=== PATIENT | female | born 1985 | race Caucasian/White ===

== ENCOUNTER 2018-06-18 20:00 | Emergency (ER) | payer MEDICAID ==
[~2018-06-18] VITALS: Ht 162.6 cm; Wt 88.9 kg
[2018-06-18 20:00] VITALS: BP 138/68
--- NOTE | 2018-06-18 20:00 | NUR ---
PT BIBA WITH C/O PAIN IN BACK, PELVIC REGION, SOB X 1 DAY. PT STATED SHE HAD A TUBAL REVERSAL X 1 DAY, WAS IN/OUT SURGERY. PT STAYED IN A HOTEL DUE TO LIVING IN [place]. PT WAS DRIVING HOME TODAY WHEN THE PAIN BECAME UNBEARABLE. PT IS A LEVEL 6/10 FOR PAIN AT THIS TIME. PT SURGERY SITE IS CLEAN AND INTACT. NO SWELLING OR REDNNES, DISCHARGE AT THIS TIME. PT HAS NO PREVIOUS MEDICAL HX. PT HAS AN ALLERGY TO LATEX AND POSSIBLE DM. PT STATED SHE HAS NOT BEEN ABLE TO URINATE SINCE HER SURGERY. PT IS A/O X 4. LUNG SOUNDS CLEAR. DENIES N/V/D; SKIN IS PINK/WARM/DRY; VSS; PATIENT POSITIONED FOR COMFORT; HOB ELEVATED; BEDRAILS UP X2; BED DOWN. ER MD MADE AWARE OF PT STATUS.
--- NOTE | 2018-06-18 20:00 | NUR ---
PT YUNIOR ALS. TAKEN TO BED 5
--- NOTE | 2018-06-18 20:24 | NUR ---
Dr. Foster evaluating patient at bedside.
[2018-06-18] MEDS ORDERED: NACL 0.9% 1,000 ML IV ONE (20:35)
[2018-06-18 21:01] LABS: BASOPHILS % (AUTO) 0.4 % (0.0-2.0); EOSINOPHILS # (AUTO) 0.1 K/uL (0-0.4); EOSINOPHILS % (AUTO) 0.7 % (0.0-4.0); HEMOGLOBIN 12.2 g/dL (12.0-16.0); LYMPHOCYTES # (AUTO) 3.3 K/uL (2.5-16.5); LYMPHOCYTES % (AUTO) 24.9 % (20.5-51.1); MEAN CORPUSCULAR HEMOGLOBIN 29 pg (27-31); MEAN CORPUSCULAR HGB CONC 33 g/dL (33-37); MONOCYTES # (AUTO) 0.9 K/uL (0.8-1.0); MONOCYTES % (AUTO) 7.1 % (1.7-9.3); NEUTROPHILS # (AUTO) 8.9 K/uL (1.8-7.7); NEUTROPHILS % (AUTO) 66.9 % (42.2-75.2); PLATELET COUNT (AUTO) 199 K/uL (140-450); RED BLOOD CELL COUNT(AUTO) 4.21 MIL/uL (4.20-5.40); RED CELL DISTRIBUTION WIDTH 14.3 % (11.6-13.7); WHITE BLOOD COUNT (AUTO) 13.3 K/uL (4.8-10.8)
[2018-06-18] MEDS ORDERED: ENOXAPARIN 100 MG/ML SYR SUBQ ONE (21:05)
[2018-06-18 21:14] LABS: PROTHROMBIN TIME 10.3 secs (10.8-13.4)
--- NOTE | 2018-06-18 21:16 | NUR ---
X-Ray at bedside.
[2018-06-18 21:22] LABS: CARBON DIOXIDE 25.6 mmol/L (21-32); POTASSIUM 3.6 mmol/L (3.5-5.1)
[2018-06-18 21:23] LABS: ALBUMIN 3.2 g/dL (3.4-5.0); CREATININE 0.6 mg/dL (0.6-1.3); TOTAL BILIRUBIN 0.1 mg/dL (0.0-1.0)
--- NOTE | 2018-06-18 21:35 | NUR ---
PT STATED THAT SHE HAD THE REVERSAL SURGERY TO HELP WITH HER POSSIBLE DM. SHE STATED SHE GOOGLED IT AND DID HER RESEARCH. PT STATED SHE HAS NOT SEEN A PHYSICIAN FOR A LONG TIME AND HAS NOT TREATED HER POSSIBLE DM WITH EXCERCISE AND DIET. MD MADE AWARE OF STATUS. VITALS STABLE
--- NOTE | 2018-06-18 22:10 | NUR ---
pt ambulated to the restroom. tolerated well
--- NOTE | 2018-06-18 22:26 | NUR ---
PT TAKEN TO CT
--- NOTE | 2018-06-18 22:41 | NUR ---
PT RETURN FROM CT
--- NOTE | 2018-06-18 23:52 | NUR ---
PT SITTING UP IN BED, VITALS STABLE. COMFORT MEASURES OFFERED PT TOLERATED WELL.
--- NOTE | 2018-06-19 00:20 | NUR ---
Patient discharged with v/s stable. Written and verbal after care instructions given and explained. Patient alert, oriented and verbalized understanding of instructions. Ambulatory with steady gait. All questions addressed prior to discharge. ID band removed. Patient advised to follow up with PMD. Rx of ELIQUIS given. Patient educated on indication of medication including possible reaction and side effects. Opportunity to ask questions provided and answered.
[2018-06-19 00:26] VITALS: BP 148/74
== END 2018-06-19 00:20 | disposition home or self-care (01) ==
LOC: MED 20:00
DX: I48.91 Unspecified atrial fibrillation (principal); R03.0 Elevated blood-pressure reading, without diagnosis of hypertension
CPT/HCPCS: 36415; 71045; 71275; 80053; 81025; 84484; 85025; 85610; 85730; 93005; 96360; 96372; 99285; J1650; J7030; Q0092; Q9967